=== PATIENT | male | born 1975 | race African-American/Black ===

== ENCOUNTER 2017-04-30 08:02 | Day surgery (SDC) | payer BC ==
[~2017-04-30 08:02] MED LIST: Bupivacaine 0.25%/EPINEPHrine 1:200,000 10 ML SDV ONE
[2017-04-30] MEDS ORDERED: Propofol 200 MG/20 ML SDV ONE ×2 (08:59→09:20)
[2017-04-30] MEDS ORDERED: Midazolam 1 MG/ML 2 ML SDV ONE (08:59)
[2017-04-30] MEDS ORDERED: fentaNYL 100 MCG/2 ML SDV ONE ×2 (08:59→12:27)
[2017-04-30] MEDS ORDERED: Lidocaine 2% 5 ML SDV ONE (08:59)
[2017-04-30] MEDS ORDERED: Bupivacaine 0.25%/EPINEPHrine 1:200,000 10 ML SDV INJECT ONE (09:00)
[2017-04-30] MEDS ORDERED: Acetaminophen/HYDROcodone 325-5 MG Tab PO PRN (09:00)
[2017-04-30] MEDS ORDERED: Lactated Ringers 1,000 ML IV SCH (09:00)
[2017-04-30] MEDS ORDERED: ceFAZolin 2 GM in Premix Bag 1 BAG IV ONE (09:00)
[2017-04-30] MEDS ORDERED: ceFAZolin 1 GM Vial ONE (09:02)
--- NOTE | 2017-04-30 09:11 | PCM.PREANE ---
Preanesthetic Assessment - Procedure Proposed Procedure: right hand ganglion excision middle finger - Anesthesia/Transfusion/Family Hx Anesthesia History: Prior Anesthesia Without Reaction Family History of Anesthesia Reaction: No Transfusion History: No Prior Transfusion(s) Intubation History: Unknown - Review of Systems General: No Symptoms Pulmonary: No Symptoms Cardiovascular: Other (hypertension) Gastrointestinal: Other (occasional heartburn) Neurological: No Symptoms Other: Reports: None - Physical Assessment Height: 5 ft 7 in Weight: 170 lb ASA Class: 2 Mental Status: Alert & Oriented x3 Airway Class: Mallampati = 1 Dentition: Reports: Normal Dentition, [place](s) Thyro-Mental Finger Breadths: 3 Mouth Opening Finger Breadths: 3 ROM/Head Extension: Full Lungs: Clear to Auscultation, Normal Respiratory Effort Cardiovascular: Regular Rate, No Murmurs Other: 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 - Allergies Allergies/Adverse Reactions: Allergies Allergy/AdvReac Type Severity Reaction Status Date / Time No Known Allergies Allergy Verified 07/15/15 14:17 - Blood Blood Available: No Product(s) Available: None - Anesthesia Plan Pre-Op Medication Ordered: None - Acknowledgements Anesthesia Type Planned: General Anesthesia, MAC (depending upon the surgical finding) Pt an Appropriate Candidate for the Planned Anesthesia: Yes Alternatives and Risks of Anesthesia Discussed w Pt/Guardian: Yes Pt/Guardian Understands and Agrees with Anesthesia Plan: Yes PreAnesthesia Questionnaire - Past Health History Medical/Surgical History: Denies Medical/Surgical History Cardiovascular History: Reports: Hypertension Gastrointestinal History: Reports: Other (See Below) Other Gastrointestinal History: occasional heartburn Dermatologic History: Reports: Other (See Below) Other Dermatologic History: 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 - Past Surgical History Head Surgeries/Procedures: Reports: None GI Surgical History: Reports: Other (See Below) Other GI Surgeries/Procedures: hx ventral hernia repair with mesh Musculoskeletal Surgical History: Reports: Other (See Below) Other Musculoskeletal Surgeries/Procedures:: removal of bone cyst rt hand ( october 2016) - SUBSTANCE USE Smoking Status *Q: Current Every Day Smoker Days Per Week of Alcohol Use: 7 Number of Drinks Per Day: 4 Total Drinks Per Week: 28 Recreational Drug Use History: No Recreational Drug Type: Reports: Marijuana/Hashish Recreational Drug Last Use: february 23, 2017 - HOME MEDS Home Medications: Home Meds Lisinopril [Lisinopril] 10 mg PO DAILY 09/18/14 [History] Zaleplon 10 mg PO BEDTIME PRN 04/28/17 [History] - CURRENT (IN HOUSE) MEDS Current Meds: Current Medications Hydrocodone Bitart/Acetaminophen ([place] 325-5 Mg) 1 tab PO Q4H PRN PRN Reason: Pain Cefazolin Sodium/Dextrose 2 gm (/ Premix) 50 mls @ 100 mls/hr IV ONETIME ONE Stop: 04/30/17 09:29 Lactated Ringer's (Ringers, Lactated) 1,000 mls @ 125 mls/hr IV ASDIRECTED TIFFANY Last Admin: 04/30/17 08:56 Dose: 125 mls/hr Discontinued Medications Bupivacaine HCl/Epinephrine Bitart (Marcaine 0.25%/Epinephrine 1:200,000) 10 ml INJECT ONETIME ONE Stop: 04/30/17 09:01 Bupivacaine HCl/Epinephrine Bitart (Marcaine 0.25%/Epinephrine 1:200,000) Confirm Administered Dose 10 ml .ROUTE .STK-MED ONE Stop: 04/30/17 07:23 Cefazolin Sodium (Ancef) Confirm Administered Dose 2 gm .ROUTE .STK-MED ONE Stop: 04/30/17 09:03 Fentanyl (Sublimaze) Confirm Administered Dose 100 mcg .ROUTE .STK-MED ONE Stop: 04/30/17 09:00 Lidocaine (Xylocaine-Mpf 2%) Confirm Administered Dose 5 ml .ROUTE .STK-MED ONE Stop: 04/30/17 09:00 Midazolam HCl (Versed 1 Mg/Ml) Confirm Administered Dose 2 mg .ROUTE .STK-MED ONE Stop: 04/30/17 09:00 Propofol (Diprivan 20 Ml) Confirm Administered Dose 200 mg .ROUTE .STK-MED ONE Stop: 04/30/17 09:00
[2017-04-30] MEDS ORDERED: Ondansetron 4 MG/2 ML SDV ONE ×2 (09:51→12:35)
[2017-04-30] MEDS ORDERED: Ketorolac 30 MG/ML SDV ONE ×2 (09:51→12:35)
--- NOTE | 2017-04-30 10:18 | PCM.POSTAN ---
POST ANESTHESIA ASSESSMENT - MENTAL STATUS Mental Status: Alert, Oriented - RESPIRATORY Respiratory Status: Respiratory Rate WNL, Airway Patent, O2 Saturation Stable - CARDIOVASCULAR CV Status: Pulse Rate WNL, Blood Pressure Stable - GASTROINTESTINAL GI Status: No Symptoms - POST OP HYDRATION Hydration Status: Adequate & Stable
--- NOTE | 2017-04-30 10:30 | PCM48HPAN ---
Post Anesthesia Note - EVALUATION WITHIN 48HRS OF ANESTHETIC Vital Signs in Normal Range: Yes Patient Participated in Evaluation: Yes Respiratory Function Stable: Yes Airway Patent: Yes Cardiovascular Function Stable: Yes Hydration Status Stable: Yes Pain Control Satisfactory: Yes Nausea and Vomiting Control Satisfactory: Yes Mental Status Recovered: Yes
[2017-04-30] MEDS ORDERED: Dexamethasone 4 MG/ML 5 ML MDV ONE (12:13)
[2017-04-30 12:29] VITALS: BP 126/86
[2017-04-30] MEDS ORDERED: Neostigmine Methylsulfate 1 MG/ML 5 ML Syringe ONE (12:35)
--- NOTE | 2017-05-03 09:51 | PCM.OPNOTE ---
- General Post-Op/Procedure Note Date of Surgery/Procedure: 04/30/17 Operative Procedure(s): excision of right middle finger ganglion cyst Pre Op Diagnosis: right middle finger ganglion cyst Post-Op Diagnosis: Same Anesthesia Technique: Local, MAC Primary Surgeon: Laurie Bunch Acquisition Editor: Luh Lao Complications: None Condition: Good
--- NOTE | 2017-05-03 11:22 | OR ---
SURGEON: ADAMS MALLOY MD DATE OF PROCEDURE: 04/30/2017 PREOPERATIVE DIAGNOSIS: Right middle finger ganglion cyst. POSTOPERATIVE DIAGNOSIS: Right middle finger ganglion cyst. PROCEDURE: Excision of right middle finger ganglion cyst. CLINICAL MANAGER: MAGGY Bran ANESTHESIA: Local MAC. INDICATIONS: Mr. Samuel is a 41-year-old gentleman with a right middle finger ganglion cyst. Risks and benefits of excision were discussed with him and he was in agreement to proceed. This is causing him pain. Risks were including, but not limited to, bleeding, infection, damage to underlying or overlying structures, possible need for future interventions, and possible scarring. PROCEDURE IN DETAIL: After informed consent was obtained and placed on the chart, the patient was brought to the operating theater and laid in supine position. After adequate local MAC anesthesia was obtained, the area was prepped and draped, and a time- out was completed to confirm side and site. The arm was then exsanguinated and the tourniquet was inflated to 200 mmHg. Attention was then paid to dissection over the right middle finger ganglion cyst with a Bobbi type incision. Dissection was carried through skin using #15 blade and then down through and circumferentially around the ganglion using a Littler scissor for dissection. Once adequately dissected, the nerves were retracted laterally and directly visualized. The lesion was transected off the underlying tendon sheath. Once this was removed and sent for pathology, the area was copiously irrigated and hemostasis was obtained. The wound was then closed using a 5-0 nylon stitches in a horizontal mattress fashion. The patient tolerated this well and all counts of needles were correct at the end of the case. FOLLOWUP INSTRUCTIONS: The wound was dressed with Xeroform, fluffs, and a 2-inch HOME wrap. The patient was given a prescription for pain medication. He will come back to see us in approximately 10 days for suture removal, sooner if any problems, questions, or concerns. HEGGTHE / RYANL /[id number]
== END 2017-04-30 11:00 | disposition home or self-care (01) ==
LOC: MW.SDS 08:02
PROVIDERS: ATTEND Plastic Surgery
DX: M67.441 Ganglion, right hand (principal); I10 Essential (primary) hypertension; Z79.899 Other long term (current) drug therapy; Z98.890 Other specified postprocedural states; F17.210 Nicotine dependence, cigarettes, uncomplicated
CPT/HCPCS: 26160; 88304; J0690; J1100; J1885; J2250; J2405; J3010; J7120; 01810; J2704

== ENCOUNTER 2018-01-09 16:25 | Emergency (ER) | payer BC ==
--- NOTE | 2018-01-09 16:44 | EDM.PDOC ---
ED HPI GENERAL MEDICAL PROBLEM - General Chief Complaint: Lower Extremity Injury/Pain Stated Complaint: PT HURT RT FOOT Time Seen by Provider: 01/09/18 16:32 - History of Present Illness INITIAL COMMENTS - FREE TEXT/NARRATIVE: HISTORY AND PHYSICAL: History of present illness: Patient is 42-year-old male presents with a concern of acute right foot pain he states he awoke with this he denies any trauma denies history of gout he does drink daily he denies fever chills or other joint pain or concern. Review of systems: As per history of present illness and below otherwise all systems reviewed and negative. Past medical history: As per history of present illness and as reviewed below otherwise noncontributory. Surgical history: As per history of present illness and as reviewed below otherwise noncontributory. Social history: No reported history of drug or alcohol abuse. Family history: As per history of present illness and as reviewed below otherwise noncontributory. Physical exam: HEENT: Atraumatic, normocephalic, pupils reactive, negative for conjunctival pallor or scleral icterus, mucous membranes moist, throat clear, neck supple, nontender, trachea midline. Lungs: Clear to auscultation, breath sounds equal bilaterally, chest nontender. Heart: S1S2, regular, negative for clicks, rubs, or JVD. Abdomen: Soft, nondistended, nontender. Negative for masses or hepatosplenomegaly. Negative for costovertebral tenderness. Pelvis: Stable nontender. Genitourinary: Deferred. Rectal: Deferred. Extremities: Right foot Atraumatic, . Neurovascular unremarkable. No erythema no point tenderness Neuro: Awake, alert, oriented. Cranial nerves II through XII unremarkable. Cerebellum unremarkable. Motor and sensory unremarkable throughout. Exam nonfocal. Diagnostics: CBC CMP and uric acid x-ray right foot Therapeutics: None Impression: #1right foot pain etiology to be determined Definitive disposition and diagnosis as appropriate pending reevaluation and review of above. - Related Data Allergies Allergy/AdvReac Type Severity Reaction Status Date / Time No Known Allergies Allergy Verified 07/15/15 14:17 Home Meds: Home Meds Lisinopril 10 mg PO DAILY 09/18/14 [History] Zaleplon 10 mg PO BEDTIME PRN 04/28/17 [History] Acetaminophen/HYDROcodone [[place] 325-5 MG] 1 tab PO Q4H PRN #30 tablet 04/30/17 [Rx] Past Medical History - Past Health History Medical/Surgical History: Denies Medical/Surgical History Cardiovascular History: Reports: Hypertension Gastrointestinal History: Reports: Other (See Below) Other Gastrointestinal History: occasional heartburn Dermatologic History: Reports: Other (See Below) Other Dermatologic History: 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 ED EXAM, GENERAL - Physical Exam Exam: See Below (See dictation) Course - Vital Signs Last Recorded V/S: Last Vital Signs Temp 36.4 C 01/09/18 16:47 Pulse 94 01/09/18 16:47 Resp 16 01/09/18 16:47 BP 149/107 H 01/09/18 16:47 Pulse Ox 97 01/09/18 16:47 - Orders/Labs/Meds Orders: Active Orders 24 hr Category Date Time Status Foot 2V Rt [CR] Stat Exams 01/09/18 16:42 Taken Labs: Laboratory Tests 01/09/18 01/09/18 Range/Units 16:52 16:52 WBC 10.46 (4.0-11.0) K/uL RBC 5.15 (4.50-5.90) M/uL Hgb 15.9 (13.0-17.0) g/dL Hct 46.4 (38.0-50.0) % MCV 90.1 (80.0-98.0) fL MCH 30.9 (27.0-32.0) pg MCHC 34.3 (31.0-37.0) g/dL RDW Std Deviation 44.1 (28.0-62.0) fl RDW Coeff of Ricardo 13 (11.0-15.0) % Plt Count 296 (150-400) K/uL MPV 9.20 (7.40-12.00) fL Neut % (Auto) 69.7 (48.0-80.0) % Lymph % (Auto) 21.7 (16.0-40.0) % [place] % (Auto) 6.9 (0.0-15.0) % Eos % (Auto) 1.0 (0.0-7.0) % Baso % (Auto) 0.7 (0.0-1.5) % Neut # (Auto) 7.3 H (1.4-5.7) K/uL Lymph # (Auto) 2.3 (0.6-2.4) K/uL [place] # (Auto) 0.7 (0.0-0.8) K/uL Eos # (Auto) 0.1 (0.0-0.7) K/uL Baso # (Auto) 0.1 (0.0-0.1) K/uL Nucleated RBC % 0.0 /100WBC Nucleated RBCs # 0 K/uL Sodium 137 (136-148) mmol/L Potassium 3.4 L (3.5-5.1) mmol/L Chloride 102 (98-107) mmol/L Carbon Dioxide 25.9 (21.0-32.0) mmol/L BUN 16 (7.0-18.0) mg/dL Creatinine 1.2 (0.8-1.3) mg/dL Est Cr Clr Drug Dosing TNP Estimated GFR (MDRD) > 60.0 ml/min Glucose 127 H (74-106) mg/dL Uric Acid 5.3 (2.6-7.2) mg/dL Calcium 8.9 (8.5-10.1) mg/dL Total Bilirubin 0.4 (0.2-1.0) mg/dL AST 18 (15-37) IU/L ALT 31 (14-63) IU/L Alkaline Phosphatase 52 (46-116) U/L Total Protein 7.5 (6.4-8.2) g/dL Albumin 4.0 (3.4-5.0) g/dL Globulin 3.5 (2.0-3.5) g/dL Albumin/Globulin Ratio 1.1 L (1.3-2.8) Departure - Departure Time of Disposition: 17:28 Disposition: Home, Self-Care 01 Condition: Good Clinical Impression: Foot pain - Discharge Information Referrals: PCP,None [Primary Care Provider] - Forms: ED Department Discharge Additional Instructions: The following information is given to patients seen in the emergency department who are being discharged to home. This information is to outline your options for follow-up care. We provide all patients seen in our emergency department with a follow-up referral. The need for follow-up, as well as the timing and circumstances, are variable depending upon the specifics of your emergency department visit. If you don't have a primary care physician on staff, we will provide you with a referral. We always advise you to contact your personal physician following an emergency department visit to inform them of the circumstance of the visit and for follow-up with them and/or the need for any referrals to a consulting specialist. The emergency department will also refer you to a specialist when appropriate. This referral assures that you have the opportunity for followup care with a specialist. All of these measure are taken in an effort to provide you with optimal care, which includes your followup. Under all circumstances we always encourage you to contact your private physician who remains a resource for coordinating your care. When calling for followup care, please make the office aware that this follow-up is from your recent emergency room visit. If for any reason you are refused follow-up, please contact the [facility] emergency department at and asked to speak to the emergency department charge nurse. Sarah Perry - Podiatry [address] [place] [phone] Fax: [phone] Indocin as prescribed call to schedule appointment with podiatry clinic above return as needed as discussed - My Orders Last 24 Hours: My Active Orders 01/09/18 16:42 Foot 2V Rt [CR] Stat - Assessment/Plan Last 24 Hours: My Active Orders 01/09/18 16:42 Foot 2V Rt [CR] Stat
[2018-01-09 17:20] LABS: CHLORIDE,CL 102 mmol/L (98-107); SODIUM,NA 137 mmol/L (136-148)
[2018-01-09] MEDS ORDERED: Indomethacin 25 MG Cap PO ONE (17:53)
[2018-01-09 17:55] VITALS: BP 149/107
--- NOTE | 2018-01-10 14:53 | CR ---
EXAM DATE: 01/09/18 PATIENT'S AGE: 42 Patient: GONZALO TEAGUE Facility: [employer], [place] Site . Site : 1975 Study: XRay Extremity Right foot [id number]/20/2018 5:08:33 PM Ordering Physician: Leonora Anders Final Report: Pain 2 views of the right foot Findings: Normal alignment. No acute fractures. Small calcaneal spur. IMPRESSION: 1. No acute fracture or acute osseous abnormalities. Dictated by Samanta Schwartz MD @ Jan 09 2018 5:43PM (Electronic Signature) Report Signed by Proxy. MITCHELL
== END 2018-01-09 18:11 | disposition home or self-care (01) ==
LOC: MW.ED 16:25
DX: M79.671 Pain in right foot (principal); I10 Essential (primary) hypertension; Z79.899 Other long term (current) drug therapy
CPT/HCPCS: 36415; 73620; 80053; 84550; 85025; 99283; A9270